=== PATIENT | female | born 1985 | race African-American/Black ===

== ENCOUNTER 2016-10-29 07:04 | Emergency (ER) | payer OTHER ==
[~2016-10-29] VITALS: Ht 165.1 cm; Wt 113.4 kg
[~2016-10-29 07:04] MED LIST: BENTYL10 M1 PO; BISACODYL10 MG PR; FLOMAX(MONOGRA0.4 MG PO; IBUPROFEN800 MG PO; MEDROL4 MG PO; MOTRIN 600 MG600 MG PO; PERCOCET 325 MG1 TA2 PO; ZOFRAN ODT4 M1 PO; ZOFRAN ODT4 MG SL; ZOFRAN4 M1 SL
[2016-10-29 07:13] VITALS: BP 147/88
[2016-10-29] MEDS ORDERED: PERCOCET 5-3251 EACH PO (07:39)
[2016-10-29] MEDS ORDERED: AMOXICILLIN500 M3 PO (07:39)
[2016-10-29] MEDS ORDERED: NASONEX17 GM NASB (07:39)
--- NOTE | 2016-10-29 07:41 | ED INFLUENZA/URI COMPLAINT ---
History of Present Illness General Chief Complaint: Low Back Pain/Injury Stated Complaint: LBP AND URI Source: patient, old records Exam Limitations: no limitations Vital Signs & Intake/Output Vital Signs & Intake/Output Vital Signs Date Time Temp Pulse Resp B/P Pulse O2 O2 Flow FiO2 Ox Delivery Rate 10/29 0713 96.3 77 18 147/88 98 Room Air Allergies Coded Allergies: NO KNOWN ALLERGIES (09/02/15) Reconcile Medications Amoxicillin 500 MG TABLET 1 TAB PO TID SINUSITIS Dicyclomine Hydrochloride (Bentyl) 10 MG CAPSULE 1 CAP PO TID PRN SPASM Mometasone Furoate (Nasonex) 50 MCG SPRAY.PUMP 2 SPRAY NASB DAILY SINUS CONGESTION Ondansetron (Zofran Odt) 4 MG TAB.RAPDIS 1 TAB PO Q6 PRN NAUSEA Oxycodone HCl/Acetaminophen (Percocet 5-325 MG Tablet) 5 MG-325 MG TABLET 1-2 TAB PO Q6P PRN PAIN Triage Note: PT TO ED FOR STUFFY NOSE AND LOW BACK PAIN SINCE SUNDAY. REPORTS SHE TOOK ONE OF HER MOM'S SOMAS AT HOME WITH NO RELIEF. Triage Nurses Notes Reviewed? yes : No Patient currently breastfeeds: No HPI: Patient presents with sinus congestion, rhinorrhea, coughing, which is nonproductive, sneezing and feeling of her ears pop for the past 4 days. Patient also states that when she sneezed 2 days ago she had a sudden onset of left lower back pain that radiates into her left thigh. Patient does have a history of a herniated disc. There is no weakness or numbness. There is no incontinence bowel or bladder. The pain increases with movement. The pain is sharp in nature. The pain is 10 out of 10. Past History Travel History Traveled to [place] past 21 day No Medical History Any Pertinent Medical History? 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 No Review of Systems Review of Systems Constitutional: Reports: see HPI, chills. EENTM: Reports: see HPI, ear pain ("popping"), nasal congestion. Respiratory: Reports: see HPI, cough. Cardiovascular: Reports: no symptoms. GI: Reports: no symptoms. Genitourinary: Reports: no symptoms. Musculoskeletal: Reports: see HPI, back pain. Skin: Reports: no symptoms. Neurological/Psychological: Reports: no symptoms. Hematologic/Endocrine: Reports: no symptoms. Immunologic/Allergic: Reports: no symptoms. All Other Systems: Reviewed and Negative Physical Exam Physical Exam General Appearance: well developed/nourished, alert, awake, moderate distress Head: atraumatic, normal appearance Eyes: Bilateral: PERRL, EOMI. Ears, Nose, Throat: normal ENT inspection, Tympanic normal, nasal congestion, nasal drainage Neck: normal inspection, supple, full range of motion Respiratory: normal breath sounds, chest non-tender, no respiratory distress, lungs clear Cardiovascular: regular rate/rhythm, normal peripheral pulses Gastrointestinal: normal bowel sounds, soft, non-tender, no organomegaly Back: normal inspection, normal range of motion, muscle spasm, no vertebral tenderness Extremities: normal inspection, normal capillary refill, normal range of motion, no edema Neurologic/Psych: no motor/sensory deficits, awake, alert, oriented x 3, normal gait, normal mood/affect Reflexes: 3+: knee (R), knee (L), ankle (R), ankle (L). Skin: intact, normal color Core Measures Severe Sepsis Present: No Septic Shock Present: No Progress Differential Diagnosis: pneumonia, sinusitis, MYOFASCIAL STRAIN, HERNIATED DISC Plan of Care: Medications Initial ED EKG: none Departure Departure Disposition: HOME OR SELF CARE Condition: Stable Clinical Impression Primary Impression: Sinusitis Secondary Impressions: Low back pain Referrals: YADIRA HAMMONDS APRN (PCP/Family) Additional Instructions: USE MOIST HEAT RETURN IF SYMPTOMS WORSEN OR FOR ANY CONCERNS Departure Forms: Customer Survey General Discharge Information Prescriptions: Current Visit Scripts Oxycodone HCl/Acetaminophen (Percocet 5-325 MG Tablet) 1-2 TAB PO Q6P PRN PAIN #20 TAB Amoxicillin 1 TAB PO TID #30 TAB Mometasone Furoate (Nasonex) 2 SPRAY NASB DAILY #1 INHAL
== END 2016-10-29 07:46 ==
LOC: ERH 07:04
DX: J32.9 Chronic sinusitis, unspecified (principal); M54.5 Low back pain

== ENCOUNTER → 2018-01-31 | Day surgery (SDC) | payer OTHER ==
[~2018-01-31] VITALS: Ht 165.1 cm; Wt 113.4 kg
[~2018-01-31] MED LIST changes: +AMOXICILLIN500 M3 PO; +CHANTIX1 MG PO; +NASONEX17 GM NASB; +PERCOCET 5-3251 EACH PO; +VICODIN 5-3001 EACH PO
--- NOTE | 2018-01-31 11:27 | Operative Report ---
Operative/Inv Procedure Report Surgery Date: 01/31/18 Name of Procedure: D&C cryoablation uterus under ultrasound guidance Pre-Operative Diagnosis: Menorrhagia Post-Operative Diagnosis: The patient was taken to the operating room placed the OR table in supine position. Timeout was performed, with the patient awake, in order to confirm correct identity, procedure, anesthesia, antibiotics, and other pertinent perioperative information. After adequate anesthesia and antibiotics, the patient was then placed lithotomy stirrups draped and prepped in usual surgical fashion. Weighted speculum was placed posteriorly without difficulty. 14 Serbian Schulz catheter was inserted without difficulty, draining clear urine. Once the bladder was completely drained, the schulz was clamped. [place]-dissection, using 1% lidocaine with epinephrine, was performed along the mid line of the urethra, from the urethral orifice to the bladder neck. 15 blade knife was used to make an vertical incision along the length of the urethra. Using blunt and sharp dissection, anterior vaginal flaps were were dissected in order to expose the periurethral fascia. Urethropexy was performed by using 2-0 Vicryl sutures, by Jackie plication method, suturing the lateralized right and left periurethral fascia, and bringing them to the midline of the urethra. Once this urethropexy was performed, insertion of the sling was then in order. The medial aspect of the ishial bone was palpable from both sides of the urethral dissection. Stab incisions on the lateral portion of the labia, approximately 2 cm below the insertion point of the gracilis was performed using 15 blade knife. The entire area was infiltrated with 2% lidocaine with epinephrine. The finder needle was used in order to identify the inner surface of the initial spine to find the obturator space. Using the right-handed needle passer, the puncture wound on the left side of the patient was entered, guiding the passer, with index finger in the vaginal ne-urethral space, through the inner surface of the obturator, and into the ne-vesicle space extending out through the left side of the anterior vaginal dissection. The mesh was then attached to the needle passer, and the needle passer was then retracted along the same line as was entered, pulling the mesh in place along with it. The oposite side of the mesh was passed into the ne-vesical space, and out through the right stab incision using mirror image technique. The mesh was flattened, and securely placed across the mid-urethral position. Copious amount of vancomycin irrigation solution was used to irrigate the vaginal incision as well as the lateral incisions. The Schulz catheter was removed. A 22 Serbian cystoscope sheath with a 30 angle lens was inserted into the urethra, and subsequently into the bladder. Upon entering the bladder, the bladder was noted to be free of tumor, free of injury, free of stone. No foreign body was seen in the bladder. Both ureteral orifices were in their orthotopic posi. fibroiD Estimated Blood Loss: 50ml to 100ml Surgeon/Crown Ironer Operator: Yanci Poe MD Anesthesia: moderate sedation Operative/Procedure Note Note: Procedure the patient was seen in the operating room placed on position is adequate anesthesia was induced without position and transferred to the fashion examination under anesthesia this point. The bladder was catheterized speculum was placed into the vagina patient tolerated this well. A single-tooth tenaculum was placed on the atrial conservative gentle down try conservative styloid 20 Hegar Brown insertion of the sharp curet sharp curettage and cervical lines for trochanter was inserted lives for specimen sent to pathology this point the bladder was filled with 20 50 mL normal saline. Schulz under ultrasound guidance the cryoprobe was placed gently into the uterus approximately 8 minutes of cryoablation was performed the procedure and removed FROM the vagina ID indicates the counts correct on the patient was returned Spot position away from anesthesia and transferred to recovery room awake alert counts correct
--- NOTE | 2018-01-31 16:40 | ULTRASOUND REPORT ---
EXAMINATION: US INTRAOPERATIVE CLINICAL INFORMATION: Cryoablation performed in operating room. Menometrorrhagia. COMPARISON: None TECHNIQUE: Intraoperative, nondiagnostic sonographic imaging of the pelvis was performed using a curved, 5 MHz transabdominal transducer. A total of 7 sagittal images of the uterus are submitted into the electronic picture archive. FINDINGS: Intraoperative sonographic imaging of the pelvis was performed at time of cryoablation. Please refer to the operative report. This is not a diagnostic examination. Within the fundal portion of the uterus, the echogenic endometrial stripe is approximately 0.6 cm AP. IMPRESSION: Sonographic assistance provided to the operating room.
== END ==
LOC: STS 01-24 07:00
DX: N92.1 Excessive and frequent menstruation with irregular cycle (principal); Z87.891 Personal history of nicotine dependence
CPT/HCPCS: 76998; 81025; J0131; J2250; J2405; J3490